=== PATIENT | female | born 1985 | race Caucasian/White ===

== ENCOUNTER 2023-10-14 15:09 | Emergency (ER) | payer SELFPAY | END 2023-10-14 16:07 | disposition home or self-care (01) | LOC: JD.ED 15:09 | DX: L91.8 Other hypertrophic disorders of the skin (principal) | CPT/HCPCS: 99283 ==

== ENCOUNTER 2024-04-11 05:55 | Emergency (ER) | payer BC | END 2024-04-11 07:50 | disposition home or self-care (01) | LOC: JD.ED 05:55 | DX: L20.9 Atopic dermatitis, unspecified (principal) | CPT/HCPCS: 99282 ==